=== PATIENT | female | born 1975 | race Caucasian/White ===

== ENCOUNTER 2023-09-11 06:11 | Emergency (ER) | payer OTHER, SELFPAY ==
--- NOTE | 2023-09-11 06:15 | DI.CT_ITS ---
Exam(s) CT ABDOMEN PELVIS WO EXAM: CT ABDOMEN PELVIS WO CLINICAL HISTORY: right flank pain and RUQ pain, eval GB and stone. TECHNIQUE: Imaging Protocol: Axial computed tomography images with coronal and sagittal reformatted images were created and reviewed. Oral: / no COMPARISON: No exams were available for comparison FINDINGS: Lung Bases: No acute findings. Liver: Normal density. No measurable mass. Gallbladder and biliary tract: Stones are visible in the gallbladder. No gallbladder wall thickeni ng or pericholecystic fluid. No biliary dilation. Pancreas: Normal density, no abnormal calcifications or inflammatory process. Spleen: Normal. Kidneys: Normal size, contour and axis. Tiny bilateral nonobstructing stones. Right ureter is mildly dilated. No obstructing stone is seen. No suspicious masses seen. Adrenal glands: No masses seen. Lymph nodes: Within normal limits. Vasculature: Abdominal aorta non-dilated. Soft tissues: Unremarkable. Bladder: No wall thickening. No mass or calculi. Bowel: No obstruction or bowel wall thickening. Appendix normal. Moderate quantity of stool. Peritoneal cavity: No ascites, collection or mesenteric inflammatory response. Reproductive organs: Unremarkable. Bones: Unremarkable for age. IMPRESSION: Cholelithiasis. No evidence of acute cholecystitis. Bilateral nephrolithiasis. Mild dilatation of the right ureter without visible obstructing stone. RADIATION DOSE DELIVERED: 1,303.8mGy.cm Total DLP DATA REPOSITORY: All CT scans at this facility are submitted to the National Radiology Data Registry (NRDR) Dose Index Registry (DIR) with the [employer] (ACR). RADIATION OPTIMIZATION: All CT scans at this facility use at least one of these dose optimization te chniques: automated exposure control; mA and/or kV adjustment per patient size (includes targeted exa ms where dose is matched to clinical indication); or iterative reconstruction.
[2023-09-11 06:16] VITALS: BP 224/97; PULSE 72; TEMP 36.6
--- NOTE | 2023-09-11 06:22 | ED.GENADUL_ITS ---
HPI General Date/Time Provider Initiated Documentation: 09/11/23 06:14 . HPI Narrative: This is a 48-year-old -[place] female with a past medical history of kidney stones, gallstones, who denies any other significant past medical history presents today for evaluation of right flank pain. Patient states that at around 4 AM she was awoken out of sleep with right flank pain and right upper quadrant pain. Does not radiate anywhere else. She states that it feels similar to her previous gallstones but also her previous kidney stones. She admits to nausea but denies vomiting. She denies any chest pain or shortness of breath. No other complaints at this time. No other modifying factors. She has not taken any medications this morning. Related Data Allergies Allergy/AdvReac Type Severity Reaction Status Date / Time amoxicillin Allergy rash Unverified 09/11/23 06:21 penici AdvReac rash Uncoded 09/11/23 06:21 General Stated Complaint: Abd Prob MEGAN: 3 Review of Systems All systems reviewed & are unremarkable except as noted in HPI and below Exam Narrative Exam Narrative: 1.Const: Well-nourished, Well-developed, appearing stated age 2.Eyes: PERRL, no conjunctival injection, and symmetrical lids. 3.ENT: Atraumatic external nose and ears. Moist MM. Neck: Symmetric, trachea midline, No thyromegaly. 4.CVS: +S1/S2, No murmurs or gallops. Peripheral pulses 2+ and equal in all extremities. Brisk capillary refill in all extremities. 5.RESP: Unlabored respiratory effort. Clear to auscultation bilaterally. No wheezes rales or rhonchi 6.GI: Soft, nondistended. Mild right CVA tenderness. No significant reproducible tenderness on deep palpation of the right upper and right mid abdominal quadrants. 7.MSK: Normocephalic/Atraumatic, Extremities w/o deformity or ttp No cyanosis or clubbing, Normal movement of all extremities 8.Skin: Warm, Dry. No rashes or lesions. 9.Neuro: aircraft armorer II-XII grossly intact. Sensation grossly intact, no focal neurologic deficits. 10.Psych: (AAO) x3. Appropriate mood and affect Course Vital Signs Vital signs: Vital Signs Temperature 36.6 C 09/11/23 06:16 Pulse 72 09/11/23 06:16 Blood Pressure 224/97 H 09/11/23 06:16 Temperature 36.6 C 09/11/23 06:16 Pulse 72 09/11/23 06:16 Blood Pressure 224/97 H 09/11/23 06:16 Oxygen Delivery Method Room Air 09/11/23 06:16 Oxygen Flow Rate 0 09/11/23 06:16 End Tidal Co2 99 09/11/23 06:16 Pain Level 7 09/11/23 06:16 Medical Decision Making This is a 48-year-old -[place] female with a past medical history of kidney stones, gallstones, who denies any other significant past medical history presents today for evaluation of right flank pain. Patient states that at around 4 AM she was awoken out of sleep with right flank pain and right upper quadrant pain. Does not radiate anywhere else. She states that it feels similar to her previous gallstones but also her previous kidney stones. She admits to nausea but denies vomiting. She denies any chest pain or shortness of breath. No other complaints at this time. No other modifying factors. She has not taken any medications this morning. Exam demonstrates well-appearing female, mild right CVA tenderness, no significant tenderness on palpation of the abdomen itself. No guarding or rebound otherwise. Concern for cholecystitis versus gallstone versus kidney stone. No chest pain or shortness of breath to suggest cardiac etiology. Will get a CT scan of the abdomen and pelvis, treat with Toradol and Ofirmev, gently rehydrate, monitor closely and reassess. 7:21 AM Laboratory workup is returned, no white count bandemia or left shift. Normal bilirubin. Alk phos slightly elevated at 121. Urinalysis shows no evidence of blood. Suspect potential biliary component. Pending CT scan. Patient will be signed out to my colleague Dr. Darell Bolden for follow-up on imaging. Quality:SDOH Health Related Social Needs: No Data to Display PFSH All Active Problems (Updated 09/11/23 @ 07:23 by Des Patten DO) Right upper quadrant abdominal pain (Acute) Social History Smoking/Tobacco Use Status: Never Smoking risk assessment performed?: Yes Substance use type: does not use Housing: house Discharge Plan Discharge Details Chief Complaint: Abd Prob Clinical Impression: Right upper quadrant abdominal pain Primary Care Provider: Fernanda,Local ED Provider: Des Patten
[2023-09-11 06:25] VITALS: PULSE 72; RESP 18; TEMP 36.7; O2SAT 100
[2023-09-11 06:35] LABS: Abs Immature Grans 0.01 10^3/uL (0.0-0.06); Absolute Basophil Count 0.04 10^3/uL (0.0-0.2); Absolute Eosinophil Count 0.12 10^3/uL (0.0-0.7); Absolute Lymphocyte Count 2.19 10^3/uL (1.2-3.4); Absolute Monocyte Count 0.71 10^3/uL (0.1-0.8); Absolute Neutrophil Count 3.63 10^3/uL (1.2-6.7); Basophils % 0.6; Eosinophils % 1.8; HCT 40.9 % (36.0-46.0); HGB 12.8 g/dL (11.2-15.7); Immature Grans % 0.1; Lymphocytes % 32.7; MCH 27.5 pg (27.0-33.0); MCHC 31.3 % (32.0-36.0); MCV 88 fL (80-95); MPV 10.9 fL (8.0-11.0); Monocytes % 10.6; Neutrophils % 54.2; Platelet Count 269 10^3/uL (130-400); RBC 4.66 10^6/uL (3.93-5.22); RDW 14.5 % (11.7-14.6); RDW-SD 46.7 fL
[2023-09-11] MEDS: Normal Saline 1,000 ML 1000 ML IV (06:40)
[2023-09-11] MEDS: Ketorolac 15 MG/ML VIAL IVP (06:41)
[2023-09-11] MEDS: ACETAMINOPHEN 1,000 MG/100 ML BTL 400 MG IVPB (06:41)
[2023-09-11] MEDS: Ondansetron 4 MG/2 ML VIAL IVP (06:41)
[2023-09-11 06:51] LABS: ALT 26 U/L (14-59); AST 18 U/L (15-37); Albumin 3.4 g/dL (3.4-5.0); Alkaline Phosphatase 121 U/L (46-116); Anion Gap 6.9 mmol/L (3-11); BUN 17 mg/dL (7-18); Bilirubin, Total 0.3 mg/dL (0.2-1.0); CO2 31.1 mmol/L (21.0-32.0); CREATININE 1.1 mg/dL (0.55-1.02); Calcium 9.1 mg/dL (8.5-10.1); Chloride 105 mmol/L (98-107); Glucose 118 mg/dL (74-106); Potassium 4.1 mmol/L (3.5-5.1); Sodium 143 mmol/L (136-145); Total Protein 7.5 g/dL (6.4-8.2)
[2023-09-11 07:06] LABS: Bilirubin Negative (Negative); Blood Negative (Negative); Clarity Sl Cloudy (Clear); Glucose Negative (Negative); Ketones Negative (Negative); Leukocyte Esterase Negative (Negative); Nitrite Negative (Negative); Specific Gravity 1.025 (1.005-1.025); Urobilinogen 0.2 mg/dL (Up to 0.2)
--- NOTE | 2023-09-11 08:15 | DI.VRAD_ITS ---
PROCEDURE INFORMATION: Exam: CT Abdomen And Pelvis Without Contrast Exam date and time: 09/11/2023 7:12 AM Age: 48 years old Clinical indication: Other: Right flank pain and ruq pain, eval gb and stone TECHNIQUE: Imaging protocol: Computed tomography of the abdomen and pelvis without contrast. COMPARISON: No relevant prior studies available. FINDINGS: Limitations: No contrast was administered, limiting evaluation for some pathologies. Liver: No focal hepatic lesion identified, within the limitations of a noncontrast examination. Gallbladder and bile ducts: Distended gallbladder containing multiple calculi. Pancreas: No CT evidence for acute pancreatitis. Spleen: No splenomegaly. Adrenal glands: No mass. Kidneys and ureters: Bilateral renal calculi. No left hydronephrosis. Mild right hydroureteronephrosis. No ureteral or bladder calculi identified at this time. Stomach and bowel: Retained fecal material is present in the colon. Appendix: No evidence of appendicitis. Intraperitoneal space: No free air. Vasculature: No abdominal aortic aneurysm. Lymph nodes: Nonspecific mesenteric nodes. Urinary bladder: See Kidneys and ureters finding. Reproductive: No acute findings. Bones/joints: Sclerosis at the sacroiliac joints. Soft tissues: No pertinent acute abnormality seen. IMPRESSION: 1. Cholelithiasis. 2. Mild right hydroureteronephrosis. No obstructing calculi identified at this time 3. Additional findings as above. Dictated and Authenticated by: Nunu Castro MD. Ordering:JON Nunes MD
--- NOTE | 2023-09-11 08:21 | ED.PROG_ITS ---
Date of service: 09/11/23 Time of Service: 08:21 Medical Decision Making Patient resting comfortably no acute distress. Evidence of nephrolithiasis as well as cholelithiasis. No evidence of obstructing kidney stone or UTI. Patient feeling much better after medication and rest. Will follow-up with her primary care physician and possibly urology upon returning home to [place]. Home care instructions and return precautions given Quality:SDOH Health Related Social Needs: No Data to Display Sign Out Sign Out Data: Sign Out Comment: Right upper quadrant pain, pending CT scan. Last updated by Des Patten DO at 09/11/23 07:26 Discharge Plan Disposition Patient Disposition: Home Condition: Improving Discharge Details Chief Complaint: Abd Prob Clinical Impression: Right upper quadrant abdominal pain, Nephrolithiasis, Cholelithiasis Primary Care Provider: Fernanda,[facility] ED Provider: John Guajardo Discharge Instructions Instructions: Gallstones (ED), Kidney Stones (ED) Additional Instructions: Please follow-up closely with your primary care physician. Return to the emergency department for any worsening symptoms.
[2023-09-11 08:33] VITALS: BP 180/84; PULSE 64; RESP 16; O2SAT 100
== END 2023-09-11 09:27 | disposition home or self-care (01) ==
PROVIDERS: Student in an Organized Health Care Education/Training Program; Emergency Provider Emergency Medicine
DX: R10.11 Right upper quadrant pain (principal); K80.20 Calculus of gallbladder without cholecystitis without obstruction; N20.0 Calculus of kidney
CPT/HCPCS: 00123; 36415; 80053; 81025; 96361; 96374; 96375; 99284; 74176; 81003; 85025; J0131; J1885; J2405

== ENCOUNTER 2025-07-09 13:55 | Emergency (ER) | payer OTHER, SELFPAY ==
[2025-07-09 14:02] VITALS: BP 156/102; PULSE 74; RESP 16; TEMP 36.6; O2SAT 98
[2025-07-09 14:05] VITALS: BP 156/102; PULSE 74; RESP 16; TEMP 36.6; O2SAT 98
--- NOTE | 2025-07-09 15:00 | DI.CT_ITS ---
Exam(s) CT RENAL COLIC WO EXAM: CT RENAL COLIC WO CLINICAL HISTORY: Left flank pain. TECHNIQUE: Imaging Protocol: Axial computed tomography images with coronal and sagittal reformatted images were created and reviewed. COMPARISON: CT CT ABDOMEN PELVIS WO from 09/11/2023 FINDINGS: ABDOMEN: Lung Bases: Normal where visualized. Liver: Normal density. No measurable mass. Gallbladder and biliary tract: Status post cholecystectomy. There is no significant biliary ductal dilatation. Pancreas: Normal density, no abnormal calcifications or inflammatory process. Spleen: Normal. Kidneys: Normal size, contour and axis.There is a solitary left renal calculus. There is no ureterolithiasis or obstructive uropathy. No masses seen. Adrenal glands: No mass is seen. Lymph nodes: Within normal limits. Abdominal Aorta: Abdominal portion non-dilated. PELVIS: Bladder:The urinary bladder is incompletely distended but grossly unremarkable. Bowel: No obstruction or bowel wall thickening. Appendix is unremarkable. Peritoneal cavity: No ascites, collection or mesenteric inflammatory response. No free air. Reproductive organs: Unremarkable as visualized. Bones: Within normal limits. There is mild sclerosis seen at the sacroiliac joints which may reflect sacroiliitis. Soft Tissues: Within normal limits. IMPRESSION: 1. There is no evidence of obstructive uropathy. 2. Left nephrolithiasis. 3. There is no evidence of an acute abdominal or pelvic process. RADIATION DOSE DELIVERED: 823.61mGy.cm Total DLP DATA REPOSITORY: All CT scans at this facility are submitted to the National Radiology Data Registry (NRDR) Dose Index Registry (DIR) with the [employer] (ACR). RADIATION OPTIMIZATION: All CT scans at this facility use at least one of these dose optimization techniques: automated exposure control; mA and/or kV adjustment per patient size (includes targeted exams where dose is matched to clinical indication); or iterative reconstruction.
--- NOTE | 2025-07-09 15:05 | W.ED.GENAD ---
Discharge Plan Disposition Patient Disposition: Home Condition: Improving Discharge Details Clinical Impression: Kidney stone, Lumbar spine strain Primary Care Provider: Unknown,Unknown ED Provider: Esa Lopez Home Meds and New Rx's Prescriptions: Continued hydrochlorothiazide 25 mg tablet 25 mg PO DAILY Patient Comments: TAKE 1 TABLET (25 MG TOTAL) BY MOUTH EVERY DAY. Discharge Instructions Instructions: Back Muscle Strain (DC), Kidney Stone, Adult ED, Flank Pain ED Stand Alone Forms: Portal Information, Work Release Discharge Data Discharge Date/Time-TO BE ENTERED AT DEPARTURE: 07/09/25 16:13 Discharge Physician: Esa Lopez [facility] General Date/Time Provider Initiated Documentation: 07/09/25 15:05. Related Data Home Medications ?Medication ?Instructions ?Recorded ?Confirmed hydrochlorothiazide 25 mg tablet 25 mg PO DAILY 07/09/25 07/09/25 Allergies Allergy/AdvReac Type Severity Reaction Status Date / Time amoxicillin Allergy rash Unverified 07/09/25 14:05 penici AdvReac rash Uncoded 07/09/25 14:05 General Stated Complaint: FlankPain MEGAN: 3 Course Vital Signs Vital signs: Vital Signs Temperature 36.6 C 07/09/25 14:02 Pulse 74 07/09/25 14:02 Respiratory Rate 16 07/09/25 14:02 Blood Pressure 156/102 H 07/09/25 14:02 Pulse Oximetry 98 07/09/25 14:02 Temperature 36.6 C 07/09/25 14:05 Pulse 74 07/09/25 14:05 Respiratory Rate 16 07/09/25 14:05 Blood Pressure 156/102 H 07/09/25 14:05 Pulse Oximetry 98 07/09/25 14:05 Pain Level 7 07/09/25 14:17 Medical Decision Making MDM: Summary: Patient presents to the emergency department complaining of left flank pain with a history of kidney stones but her urinalysis was negative and the CT scan of the abdomen pelvis does not show any kidney stones. She will be discharged home most likely it is muscle spasm Data Review Analysis All the data on this patient was reviewed by me including laboratory and imaging studies as well as bedside studies performed by me Independent review of Studies Imaging Lab: Risk Stratification: Patient with history of kidney stone has a kidney stone in the left kidney but not causing hydronephrosis or obstruction who will be discharged home Differential Diagnosis: 1. Kidney stones 2. Low back pain 3. Renal colic 4. 5. Consultants: Shared disposition: Patient assents to disposition will follow accordingly Impression: PFSH All Active Problems (Updated 07/09/25 @ 16:04 by Esa Lopez MD) Lumbar spine strain (Acute) Kidney stone (Chronic) Social History Smoking/Tobacco Use Status: Never Smoking risk assessment performed?: Yes Substance use type: does not use Housing: house [employer] Have you Been Recently Intoxicated or Drunk Within the Last 30 days?: No Have you Ever Experienced Previous Episodes of Alcohol Withdrawal?: No Have you ever Experienced Withdrawal Seizures?: No Have you ever Experienced Delirium Tremens(DT)s?: No Have you ever undergone Alcohol Rehabilitation Treatment (i.e, inpt ot outpatient treatment programs)?: No Have you ever Experienced Blackouts?: No Have you ever Combined Alcohol with other Downers within the last 90 days?: No Have you ever Combined Alcohol with any other Substance of Abuse during the last 90 days?: No Positive Blood Alcohol level on Presentation? [PCS.BAL]: No Evidence of Increased Autonomic Activity (i.e. HR>120, tremor, sweating, agitation, nausea)?: No Result: 0
[2025-07-09 15:24] LABS: Glucose Negative (Negative)
== END 2025-07-09 16:13 | disposition home or self-care (01) ==
PROVIDERS: Emergency Provider Emergency Medicine Emergency Medical Services
DX: N20.0 Calculus of kidney (principal); S39.012A Strain of muscle, fascia and tendon of lower back, initial encounter; X58.XXXA Exposure to other specified factors, initial encounter
CPT/HCPCS: 83690; 99284; 74176; 81003; 85025; 99283